=== PATIENT | female | born 1965 | race Caucasian/White ===

== ENCOUNTER 2018-02-12 17:18 | Inpatient (IN) | payer MEDICARE ==
[~2018-02-12] VITALS: Ht 160 cm; Wt 84.9 kg
[2018-02-12] MEDS ORDERED: SODIUM CHLORIDE 0.9% 2,000 ML IV ONE (17:30)
[2018-02-12] MEDS ORDERED: TRAZ-147 PO (17:41)
[2018-02-12] MEDS ORDERED: LOSA25TA21 PO (17:41)
[2018-02-12] MEDS ORDERED: FLUO-191 PO (17:41)
[2018-02-12] MEDS ORDERED: LORA1TAB3 PO (17:41)
[2018-02-12] MEDS ORDERED: FLUMAZENIL 0.1 MG/ML 5 ML VIAL IVP ONE (17:45)
[2018-02-12 18:08] LABS: BASOPHILS % (AUTO) 1.3 % (0.0-2.0); EOSINOPHILS % (AUTO) 2.5 % (1.0-6.0); HEMOGLOBIN 12.4 g/dL (12.0-16.0); LYMPHOCYTES # (AUTO) 3.3 K/uL (1.0-4.8); LYMPHOCYTES % (AUTO) 41.7 % (22.0-44.0); MEAN CORPUSCULAR HGB CONC 33.5 G/dL (31.0-37.0); MEAN CORPUSCULAR VOLUME 92 fL (80-100); MONOCYTES # (AUTO) 0.5 K/uL (0.1-1.0); MONOCYTES % (AUTO) 6.5 % (2.0-9.0); NEUTROPHILS # (AUTO) 3.8 K/uL (1.8-7.7); PLATELET COUNT (AUTO) 275 K/uL (150-450); RED CELL DISTRIBUTION WIDTH 13.5 % (11.5-14.5)
[2018-02-12 18:19] LABS: ANION GAP 15 mmol/L (8-16); CALCIUM, TOTAL 7.9 mg/dL (8.8-10.5); CARBON DIOXIDE 22 mmol/L (22-29); CHLORIDE 105 mmol/L (98-107); CREATININE 0.56 mg/dL (0.60-1.30); GLOMERULAR FILTR. RATE CALC > 60 mL/min (>60); GLUCOSE,RANDOM 128 mg/dL (70-110); POTASSIUM 3.9 mmol/L (3.5-5.1); SODIUM SERUM 142 mmol/L (136-145); UREA NITROGEN, BLOOD 16 mg/dL (7-18)
[2018-02-12 18:23] LABS: ALANINE AMINOTRANSFERASE 32 U/L (12-78); ALBUMIN 2.9 g/dL (3.4-5.0); ALKALINE PHOSPHATASE 79 U/L (46-116); ASPARTATE AMINOTRANSFERASE 16 U/L (15-37); BILIRUBIN,TOTAL 0.2 mg/dL (0.1-1.0); SALICYLATE 2.2 mg/dL (2.8-20.0); TOTAL PROTEIN, SERUM 6.3 g/dL (6.4-8.2)
[2018-02-12 18:24] LABS: ACETAMINOPHEN < 2 mcg/mL (10-30)
[2018-02-12] MEDS ORDERED: SODIUM CHLORIDE 0.9% 1,000 ML IV ONE ×2 (20:00→20:15)
[2018-02-12] MEDS ORDERED: ONDANSETRON HCL 4 MG/2 ML VIAL IVP PRN ×2 (20:15→21:00)
[2018-02-12] MEDS ORDERED: ACETAMINOPHEN 325 MG TABLET PO PRN (20:15)
[2018-02-12] MEDS ORDERED: 0.9% SODIUM CHLORIDE 10 ML SYRINGE IVP PRN (20:15)
[2018-02-12] MEDS: DOCUSATE SODIUM 100 MG CAPSULE PO SCH (21:00)
[2018-02-12] MEDS ORDERED: MAGNESIUM HYDROXIDE SUSPENSION 30 ML UDCUP PO PRN (21:00)
[2018-02-12 21:56] LABS: AMPHET/METH SCREEN,URINE NEGATIVE (NEGATIVE); BARBITURATE SCREEN, URINE NEGATIVE (NEGATIVE); BENZODIAZEPINES SCREEN,URINE NEGATIVE (NEGATIVE); CANNABINOID SCREEN,URINE POSITIVE (NEGATIVE); COCAINE SCREEN,URINE NEGATIVE (NEGATIVE); METHADONE SCREEN, URINE NEGATIVE (NEGATIVE); OPIATE SCREEN,URINE NEGATIVE (NEGATIVE); PHENCYCLIDINE SCREEN,URINE NEGATIVE (NEGATIVE)
[2018-02-12 22:02] VITALS: BP 103/55
[2018-02-12] MEDS: PANTOPRAZOLE SODIUM 40 MG/VIAL IVP SCH (23:02)
[2018-02-12] MEDS: SODIUM CHLORIDE 0.9% 1,000 ML IV SCH (23:36)
[2018-02-12 23:40] VITALS: BP 112/58
[2018-02-13 04:48] VITALS: BP 107/65
[2018-02-13 06:23] LABS: BASOPHILS % (AUTO) 0.9 % (0.0-2.0); EOSINOPHILS % (AUTO) 2.4 % (1.0-6.0); HEMATOCRIT 35.9 % (36-46); HEMOGLOBIN 12.2 g/dL (12.0-16.0); LYMPHOCYTES # (AUTO) 3.4 K/uL (1.0-4.8); MEAN CORPUSCULAR HGB CONC 33.9 G/dL (31.0-37.0); MEAN CORPUSCULAR VOLUME 92 fL (80-100); MONOCYTES # (AUTO) 0.6 K/uL (0.1-1.0); MONOCYTES % (AUTO) 7.4 % (2.0-9.0); NEUTROPHILS # (AUTO) 3.4 K/uL (1.8-7.7); NEUTROPHILS % (AUTO) 44.3 % (40.0-70.0); PLATELET COUNT (AUTO) 242 K/uL (150-450); RED BLOOD CELL COUNT(AUTO) 3.92 MIL/uL (4.00-5.20); RED CELL DISTRIBUTION WIDTH 13.5 % (11.5-14.5)
[2018-02-13 06:43] LABS: ALANINE AMINOTRANSFERASE 27 U/L (12-78); ALBUMIN 2.8 g/dL (3.4-5.0); ALKALINE PHOSPHATASE 77 U/L (46-116); ANION GAP 9 mmol/L (8-16); ASPARTATE AMINOTRANSFERASE 16 U/L (15-37); BILIRUBIN,TOTAL 0.3 mg/dL (0.1-1.0); CALCIUM, TOTAL 8.1 mg/dL (8.8-10.5); CARBON DIOXIDE 24 mmol/L (22-29); CHLORIDE 109 mmol/L (98-107); CREATININE 0.71 mg/dL (0.60-1.30); GLOMERULAR FILTR. RATE CALC > 60 mL/min (>60); GLUCOSE,RANDOM 113 mg/dL (70-110); POTASSIUM 4.1 mmol/L (3.5-5.1); SODIUM SERUM 142 mmol/L (136-145); TOTAL PROTEIN, SERUM 6.1 g/dL (6.4-8.2); UREA NITROGEN, BLOOD 15 mg/dL (7-18)
[2018-02-13 07:16] VITALS: BP 117/74
[2018-02-13] MEDS: DOCUSATE SODIUM 100 MG CAPSULE PO SCH ×2 (09:00→20:08)
[2018-02-13] MEDS: PANTOPRAZOLE SODIUM 40 MG/VIAL IVP SCH (09:14)
[2018-02-13] MEDS: SODIUM CHLORIDE 0.9% 1,000 ML IV SCH ×2 (09:14→20:08)
[2018-02-13] MEDS ORDERED: MAGNESIUM SULFATE 4 GM/WATER 100 ML IV PRN (09:45)
[2018-02-13] MEDS ORDERED: MAGNESIUM SULFATE 2 GM in DEXTROSE 5%-WATER 50 ML IV PRN (09:45)
[2018-02-13] MEDS: MAGNESIUM OXIDE 400 MG TABLET PO PRN ×3 (11:29→21:19)
[2018-02-13 11:36] VITALS: BP 140/86
[2018-02-13 16:03] VITALS: BP 131/71
[2018-02-13 20:26] VITALS: BP 134/81
[2018-02-14] VITALS (10 sets, daily range): BP systolic 133–184; BP diastolic 63–109
[2018-02-14] MEDS: SODIUM CHLORIDE 0.9% 1,000 ML IV SCH (06:25)
[2018-02-14] MEDS: MAGNESIUM OXIDE 400 MG TABLET PO PRN ×2 (08:42→21:35)
[2018-02-14] MEDS: PANTOPRAZOLE SODIUM 40 MG/VIAL IVP SCH (08:42)
[2018-02-14] MEDS: DOCUSATE SODIUM 100 MG CAPSULE PO SCH ×2 (09:00→20:39)
[2018-02-14] MEDS: SERTRALINE HCL 50 MG TABLET PO SCH (12:25)
[2018-02-14] MEDS: BusPIRone HCL 5 MG TABLET PO SCH ×2 (12:25→21:35)
[2018-02-14] MEDS: ACETAMINOPHEN 325 MG TABLET PO PRN ×2 (16:10→21:35)
[2018-02-14] MEDS ORDERED: CloNIDine HCL 0.1 MG TABLET PO PRN (16:15)
[2018-02-14] MEDS: LOSARTAN POTASSIUM 25 MG TABLET PO SCH (17:42)
[2018-02-15 04:23] VITALS: BP 142/89
[2018-02-15 08:18] VITALS: BP 138/82
[2018-02-15] MEDS ORDERED: PANTOPRAZOLE SODIUM 40 MG DR TABLET PO SCH (09:00)
[2018-02-15] MEDS ORDERED: LOSARTAN POTASSIUM 25 MG TABLET PO SCH (09:00)
[2018-02-15 09:56] VITALS: BP 155/84
[2018-02-15 10:46] VITALS: BP 174/98
[2018-02-15] MEDS: DOCUSATE SODIUM 100 MG CAPSULE PO SCH (10:59)
[2018-02-15] MEDS: LOSARTAN POTASSIUM 25 MG TABLET PO SCH (10:59)
[2018-02-15] MEDS: SERTRALINE HCL 50 MG TABLET PO SCH (11:00)
[2018-02-15] MEDS: BusPIRone HCL 5 MG TABLET PO SCH (11:00)
[2018-02-15] MEDS: ACETAMINOPHEN 325 MG TABLET PO PRN (11:12)
[2018-02-15] MEDS ORDERED: SERT50TA12 PO (12:01)
[2018-02-15] MEDS ORDERED: BUSP5TAB20 PO (12:02)
== END 2018-02-15 12:30 | disposition home or self-care (01) | DRG 917 ==
LOC: EMS 17:20 → 5N 20:00 → ICU 20:00 → 5N 21:55 → 6N 02-14 22:03
PROVIDERS: ADMIT Internal Medicine; ATTEND Internal Medicine
DX: T40.7X2A Poisoning by cannabis (derivatives), intentional self-harm, initial encounter (principal); G93.41 Metabolic encephalopathy; E66.9 Obesity, unspecified; Z68.33 Body mass index [BMI] 33.0-33.9, adult; Y92.89 Other specified places as the place of occurrence of the external cause; F10.10 Alcohol abuse, uncomplicated; F17.200 Nicotine dependence, unspecified, uncomplicated; F32.9 Major depressive disorder, single episode, unspecified; F43.10 Post-traumatic stress disorder, unspecified; I10 Essential (primary) hypertension; M79.7 Fibromyalgia; Y90.6 Blood alcohol level of 120-199 mg/100 ml
CPT/HCPCS: 83735; 93005; C9113; G0480; G0481; J3490; J7030